=== PATIENT | female | born 1970 | race Caucasian/White ===

== ENCOUNTER 2018-11-14 13:54 | Outpatient (CLI) | payer BC ==
--- NOTE | 2018-11-14 16:39 | RAD ---
LUMBAR SPINE SERIES 4 VIEWS: Date: 11/14/18 HISTORY: Low back pain. FINDINGS: Bones appear somewhat demineralized. Vertebral bodies are normal in height. Severe degenerative disc narrowing is seen at L5-S1. Postoperative changes with a gastric band are seen. IMPRESSION: 1. Marked degenerative disc narrowing at L5-S1. 2. Minimal loss of vertebral body height involving the superior end plate of T12. POS: [facility]
--- NOTE | 2018-11-14 16:40 | RAD ---
CERVICAL SPINE SERIES WITH FLEXION AND EXTENSION: Date: 11/14/18 HISTORY: Neck pain. FINDINGS: The vertebral bodies maintain normal height. There is minimal disc narrowing at C5-6, with slightly r estricted motion seen on the flexion view at this level. Facets are in normal alignment. IMPRESSION: Mild disc narrowing at C5-6. POS: [facility]
== END 2018-11-14 13:55 | disposition home or self-care (01) ==
LOC: TBSIIMAG 13:54
PROVIDERS: ATTEND Surgery
DX: M48.02 Spinal stenosis, cervical region (principal); M50.10 Cervical disc disorder with radiculopathy, unspecified cervical region; M50.122 Cervical disc disorder at C5-C6 level with radiculopathy; M51.37 Other intervertebral disc degeneration, lumbosacral region; M48.8X4 Other specified spondylopathies, thoracic region
CPT/HCPCS: 72050; 72110

== ENCOUNTER 2019-05-23 17:24 | Outpatient (CLI) | payer BC ==
[2019-05-23 18:17] LABS: Mean Corpuscular HGB CONC 34.3 g/dL (32.0-36.0); Mean Corpuscular Hemoglobin 31.6 pg (27.0-31.0); Mean Corpuscular Volume 92.2 fL (78.0-98.0); Mean Platelet Volume 7.6 fL (7.4-10.4); Platelet Count 251 thou/uL (130-400); RBC Distribution Width 12.3 % (11.5-14.5); Red Blood Cell (RBC) Count 4.44 mill/uL (4.20-5.40); White Blood Cell (WBC) Count 5.6 thou/uL (4.8-10.8)
[2019-05-23 18:23] LABS: INR-International Normal Ratio 0.9; Prothrombin Time 12.5 SEC (12.0-14.7)
[2019-05-23 18:24] LABS: PTT 29.3 SEC (22.9-36.1)
[2019-05-23 18:35] LABS: Anion Gap 11 mmol/L (10-20); BUN (Urea Nitrogen) 11 mg/dL (7.0-18.7); Calc. Creatinine Clearance 0 mL/min (70-130); Calcium 9.4 mg/dL (7.8-10.44); Carbon Dioxide 25 mmol/L (22-29); Chloride 104 mmol/L (98-107); Estimated GFR-MDRD 77; Glucose 86 mg/dL (70-105); Potassium 3.6 mmol/L (3.5-5.1); Sodium 136 mmol/L (136-145)
--- NOTE | 2019-05-25 17:00 | EKG ---
Test Reason : Blood Pressure : / mmHG Vent. Rate : 077 BPM Atrial Rate : 077 BPM P-R Int : 142 ms QRS Dur : 082 ms QT Int : 384 ms P-R-T Axes : 079 040 082 degrees QTc Int : 434 ms Normal sinus rhythm Right atrial enlargement Low voltage QRS Abnormal ECG Confirmed by OLIVE CHANDRA ([id number]) on 05/25/2019 4:59:58 PM Referred By: CAROLE Confirmed By:OLIVE CHANDRA
== END 2019-05-23 17:25 | disposition home or self-care (01) ==
LOC: LABBT 17:24
PROVIDERS: ATTEND Surgery
DX: Z01.818 Encounter for other preprocedural examination (principal); M54.12 Radiculopathy, cervical region; M48.02 Spinal stenosis, cervical region
CPT/HCPCS: 80048; 85027; 85610; 85730; 93005; 93010

== ENCOUNTER 2019-06-15 06:08 | Day surgery (SDC) | payer BC ==
[2019-06-15] MEDS ORDERED: Sodium Chloride 0.9% 10 ML ONE (06:25)
[2019-06-15] MEDS ORDERED: Fentanyl 100 MCG/2 ML VIAL ONE ×4 (07:16→11:10)
[2019-06-15] MEDS ORDERED: Thrombin 5000 UNITS/5 ML VIAL ONE (08:39)
[2019-06-15] MEDS ORDERED: Meperidine HCl/PF 25 MG/ML VIAL SLOW IVP PRN (09:31)
[2019-06-15] MEDS ORDERED: Morphine Sulfate 2 MG/ML SYRINGE SLOW IVP PRN (09:31)
[2019-06-15] MEDS ORDERED: PACU-Morphine 4MG/ML VIAL SLOW IVP PRN (09:31)
[2019-06-15] MEDS ORDERED: HYDROmorphone 2 MG/ML VIAL SLOW IVP PRN (09:31)
[2019-06-15] MEDS ORDERED: Promethazine HCl 25 MG/ML VIAL SLOW IVP PRN (09:31)
[2019-06-15] MEDS ORDERED: Ondansetron HCl/PF 4 MG/2 ML Vial IVP PRN (09:31)
[2019-06-15] MEDS ORDERED: Promethazine HCl 25 MG/ML VIAL IM PRN (09:31)
[2019-06-15] MEDS ORDERED: HYDROcodone/Acetaminophen 7.5/325 mg Tablet PO PRN (10:36)
[2019-06-15] MEDS ORDERED: Acetaminophen 325 MG TAB PO PRN (10:36)
[2019-06-15] MEDS ORDERED: tiZANidine HCl 4 MG TAB PO PRN (10:36)
[2019-06-15] MEDS ORDERED: Acetaminophen/Codeine 30-300mg Tablet PO PRN (10:36)
[2019-06-15] MEDS ORDERED: traMADol HCl 50 MG TAB PO PRN (10:36)
[2019-06-15] MEDS ORDERED: Milk Of Magnesia 30 ML UDCUP PO PRN (10:36)
[2019-06-15] MEDS ORDERED: Bisacodyl 10 MG SUPP PR PRN (10:36)
[2019-06-15] MEDS ORDERED: Mag-Al 1200 mg/1200 mg/30 ML UDCUP PO PRN (10:36)
[2019-06-15] MEDS ORDERED: Fleet Enema 133 ML BOT PR PRN (10:36)
[2019-06-15] MEDS ORDERED: Morphine 2 MG/ML SYRINGE SLOW IVP PRN (10:36)
[2019-06-15] MEDS ORDERED: Fluticasone Propionate Nasal Spray 16 gm Bottle NASAL PRN (10:39)
[2019-06-15] MEDS: Sodium Chloride 0.9% 1,000 ML IV SCH (13:14)
[2019-06-15] MEDS: CEFAZOLIN 2 GM in Premix Bag 1 BAG IVPB SCH ×2 (14:20→20:55)
[2019-06-15] MEDS ORDERED: Glycopyrrolate 0.2 MG/ML 5 ML SYRINGE ONE (15:06)
[2019-06-15] MEDS ORDERED: ePHEDrine 50 MG/ML VIAL ONE (15:06)
[2019-06-15] MEDS ORDERED: Lidocaine 1% PF 5 ML VIAL ONE (15:06)
[2019-06-15] MEDS ORDERED: Rocuronium Bromide 10 MG/ML (10ML VIAL) ONE (15:06)
[2019-06-15] MEDS ORDERED: PHENYLEPHRINE-NS 100 MCG/ML 10 ML SYRINGE ONE (15:06)
[2019-06-15] MEDS ORDERED: PROPOFOL 200 MG/20 ML VIAL ONE (15:06)
[2019-06-15] MEDS ORDERED: Ondansetron PF 4 MG/2 ML Vial ONE (15:06)
[2019-06-15] MEDS ORDERED: Dexamethasone 20 MG/5 ML VIAL ONE (15:06)
[2019-06-15] MEDS: Ondansetron PF 4 MG/2 ML Vial IVP PRN ×2 (17:49→23:22)
[2019-06-15 19:55] VITALS: BMI 20.7
[2019-06-15] MEDS ORDERED: Gabapentin 300 MG CAP PO SCH (21:00)
[2019-06-15] MEDS ORDERED: Loratadine/Pseudoephedrine 10/240 mg Tablet PO SCH (21:00)
[2019-06-16] MEDS: Sodium Chloride 0.9% 1,000 ML IV SCH (05:40)
[2019-06-16] MEDS: CEFAZOLIN 2 GM in Premix Bag 1 BAG IVPB SCH (05:40)
[2019-06-16 08:48] VITALS: BP 111/69; TEMP 97.6
--- NOTE | 2019-06-16 09:43 | OP ---
DATE OF PROCEDURE: 06/15/2019 PREPROCEDURE DIAGNOSES: Neck and arm pain with cervical radiculopathy and disk extrusion. POSTPROCEDURE DIAGNOSES: Neck and arm pain with cervical radiculopathy and disk extrusion. LINE DEPARTMENT SUPERVISOR: Haile Walker PA-C. PROCEDURES PERFORMED: 1. C5-C6, C6-C7 anterior diskectomies for decompression of spinal cord nerve roots. 2. Placement of interbody spacer packed with allograft C5-C6, C6-C7 for arthrodesis. 3. Anterior cervical plate and screw fixation, C5, C6 C7. 4. Use of operative microscope for microdissection. DESCRIPTION OF PROCEDURE: After informed consent was obtained from the patient, the patient was brought to the OR. Proper patient, pause, and identification were carried out. She was placed under excellent endotracheal anesthesia and positioned supine on the OR table. Right transverse david was drawn out. This region was sterilely cleansed, prepared, and draped. Proper patient, pause, and identification were carried out. The wound was then opened with combination of sharp, monopolar, and blunt dissection. The anterior C5-C6, C6-C7 segments were exposed following procession lateral to the tracheoesophageal bundle medial to the right carotid sheath. We identified the prevertebral layer of deep cervical fascia. Retractors were placed. Distraction at C5-C6 occurred. Microscope was brought in for microdissection. Diskectomy was performed at C5-C6 with excellent decompression of common dural tube in the C6 nerve roots. The endplates were prepared. Interbody spacer packed with graft was placed at C5-C6 to initiate arthrodesis. We then did the same at C6-C7 with decompression of spinal cord and bilateral C7 nerve roots. An interbody spacer of appropriate dimension was placed following preparation of the endplates for arthrodesis. Copious irrigation occurred throughout. The microscope was then removed. Anterior cervical plate and screw fixation at C5, C6, C7 were then occurred. The wound was then closed in anatomic layers following meticulous hemostasis and irrigation. Job ID: [id number]
--- NOTE | 2019-06-16 10:19 | PRG ---
DATE OF SERVICE: 06/16/2019 Ms. Gaytan is postoperative day 1 from C5 to C7 ACDF. She has had resolution in her radicular pain. She feels as if she is doing very well. She is tolerating orals with good strength in her extremity. She is mobilizing. We went over both intra and postoperative issues and she will be dismissed. Job ID: [id number]
== END 2019-06-16 10:27 | disposition home or self-care (01) ==
LOC: SDC 06:08 → SURG B 10:35 → SDC 06-16 10:27
PROVIDERS: ATTEND Surgery
PROC: 0RG20A0 Fusion of 2 or more Cervical Vertebral Joints with Interbody Fusion Device, Anterior Approach, Anterior Column, Open Approach (ICD-10-PCS; principal; 2019-06-16)
PROC: 0RT30ZZ Resection of Cervical Vertebral Disc, Open Approach (ICD-10-PCS; principal; 2019-06-16)
PROC: 0RG20K0 Fusion of 2 or more Cervical Vertebral Joints with Nonautologous Tissue Substitute, Anterior Approach, Anterior Column, Open Approach (ICD-10-PCS; principal; 2019-06-16)
DX: M50.122 Cervical disc disorder at C5-C6 level with radiculopathy (principal); M50.123 Cervical disc disorder at C6-C7 level with radiculopathy; M48.02 Spinal stenosis, cervical region
CPT/HCPCS: 76000; C1713; C1776; J0131; J0690; J1100; J2001; J2270; J2405; J2704; J3010; J3490

== ENCOUNTER 2021-08-06 10:54 | Outpatient (CLI) | payer BC ==
[2021-08-07 11:57] LABS: SARS-CoV-2 PCR by NAA Not Detected (NotDetected)
== END 2021-08-06 10:55 | disposition home or self-care (01) ==
LOC: LABBT 10:54
PROVIDERS: ATTEND Surgery
DX: Z01.812 Encounter for preprocedural laboratory examination (principal); M54.16 Radiculopathy, lumbar region; Z20.822 Contact with and (suspected) exposure to COVID-19
CPT/HCPCS: U0003; U0005

== ENCOUNTER 2021-08-11 12:02 | Day surgery (SDC) | payer BC ==
[2021-08-08 12:29] VITALS: BMI 21.1
[2021-08-11] MEDS ORDERED: PHENYLEPHRINE-NS 100 MCG/ML 10 ML SYRINGE ONE (14:00)
[2021-08-11] MEDS ORDERED: PROPOFOL 200 MG/20 ML VIAL ONE (14:00)
== END 2021-08-11 16:50 | disposition home or self-care (01) ==
LOC: MRI 12:02
PROVIDERS: ATTEND Surgery
DX: M54.12 Radiculopathy, cervical region (principal); M79.601 Pain in right arm; E03.9 Hypothyroidism, unspecified; K21.9 Gastro-esophageal reflux disease without esophagitis; F40.240 Claustrophobia; Z79.899 Other long term (current) drug therapy; Z88.8 Allergy status to other drugs, medicaments and biological substances; Z98.1 Arthrodesis status
CPT/HCPCS: 72141; J2704